=== PATIENT | female | born 1985 | race Asian ===

== ENCOUNTER 2016-06-18 09:45 | Day surgery (SDC) | payer SELFPAY ==
[2016-06-18] VITALS (9 sets, daily range): BP systolic 109–124; BP diastolic 60–91; PULSE 69–104; RESP 13–19; O2SAT 100
[~2016-06-18] VITALS: Ht 162.6 cm; Wt 57.4 kg
[~2016-06-18 09:45] MED LIST: CeFAZolin Inj 2 GM in IV Premix 1 EACH IV SCH; IBUP800T28 PO; Lactated Ringer's 1,000 ML IV SCH
[2016-06-18] MEDS ORDERED: fentaNYL-PF 50 mCg/mL 2 mL Inj ONE (09:46)
[2016-06-18] MEDS ORDERED: Dexamethasone 4 mg/mL Inj ONE (09:46)
[2016-06-18] MEDS ORDERED: EPHEDrine/NS 5 mg/mL 5 mL Syringe ONE (09:46)
[2016-06-18] MEDS ORDERED: Propofol 10,000 mCg/mL 20 mL Inj ONE (09:46)
[2016-06-18] MEDS ORDERED: MetoCLOpramide 5 mg/mL 2 mL Inj ONE (09:46)
[2016-06-18] MEDS ORDERED: Ondansetron 2 mg/mL 2 mL Inj ONE (09:46)
[2016-06-18] MEDS: Lactated Ringer's 1,000 ML IV SCH ×2 (10:49→11:43)
[2016-06-18] MEDS ORDERED: Lactated Ringer's 1,000 ML IV SCH (12:02)
[2016-06-18] MEDS ORDERED: Lactated Ringer's 500 ML IV PRN (12:02)
--- NOTE | 2016-06-18 12:04 | PCM.HPANE ---
Patient Data Surgeon Admitting Provider: Attending Provider:Eleazar Chatman MD Primary Care Physician:Vikash Other Provider:Chencho Dominguez Anesthesia Reason for Visit Bartholin Cyst Ht/WT & BMI Height (Feet): 5 Height (Inches): 4 Weight (Kilograms): 57.4 Body Mass Index 21.00 Allergies Coded Allergies: No Known Allergies (Verified Allergy, Unknown, 06/17/16) Past Anesthesia History Anesthesia History: Denies:: Abnormal Airway, Anesthesia Reactions, Difficult Intubation, Fam Anesthesia Reaction, Fam Malignant Hypertherm, Malignant Hyperthermia Diabetes History Hx Diabetes?: No MRSA MRSA: No Medications Reported Medications Ibuprofen 800 Mg [id number] Mg PO TID PRN For Pain Ref 0 06/06/16 History History of ENT Problems?: No HEENT History: Denies:: Abnormal Airway Cataracts Difficult Intubation Dysphagia Glaucoma Hearing Problem Sinus Problem TMJ Denture Type: None Teeth Condition: Within Normal Limits Hx of Heart Problems?: No Cardiovascular History: Denies:: Heart Murmur Hypertension Hx of Respiratory Problem?: No Respiratory History: Denies:: Oxygen Administration Use of C-PAP Machine Hx Neurologic Problems?: Yes Neurological History: Positive for:: Seizures (HX OF SEIZURE DISORDER (1 SEIZURE)) Hx of GI Problems?: No Hx of Problems?: Yes Genitourinary History: Positive for:: Urinary Tract Infection (recurrent) Female Hx: Denies:: Currently (S/P I&D BARTHOLIN CYST) Problems with Breasts? Skin History: Denies:: History Skin Disorders? Pressure Ulcers Hx Musculoskeletal Problems?: No Hx of Psycho/Social Problems?: No Hx Surgeries?: Yes (I&D BARTHOLIN CYST) Hx Any Other Health Problems?: Yes Other History: Positive for:: Hospitalization ([facility]) Denies:: Cancer Endocrine Disease Thyroid Disease History Blood Transfusions: Denies:: Blood Transfusions Hx Diabetes: No Hx Alcohol Use: NoHx Substance Use: No Smoking Status: Unknown if Ever Smoker Have You Smoked inLast 12 mo: No Stop/Bang S-Snoring: Do You Snore Loudly: No T-Tired: feel tired, fatigued: No O-Obsered: Observed not breath: No P-Blood Pressure: treated: No B- Body Mass Index > 35 kg/m2: No A- Age over 50: No N- Neck Large Circumference: No G- Gender Male: No SANTO Total Score: 0 Risk Assessment Category Category 1A: Patient has history of documented sleep apnea, and HAS NOT received any narcotic, sedative or anesthesia administration during this stay. Category 1B: Patient has history of documented sleep apnea, and HAS received any narcotic , sedative or anesthesia administration during this stay Category 2: Patient has SUSPECTED Obstructive Sleep Apnea, and HAS received any narcotic , sedative or anesthesia administration during this stay. Category 3: Patient has SUSPECTED Obstructive Sleep Apnea and HAS NOT received narcotic, sedative or anesthesia administration during this stay. Category 4: Outpatient in Procedural Areas with known sleep apnea or who screen positive for High Risk via the STOP/BANG questionnaire. Exam Exam Vital Signs Vital Signs Date Time Temp Pulse Resp B/P Pulse Ox O2 Delivery O2 Flow Rate FiO2 06/18/16 10:09 36.0 69 13 109/75 100 Room Air General Appearance: Alert, Oriented X3, Cooperative, No Acute Distress HEENT/AIRWAY: MP 2, Neck Movement (FROM), Mouth Opening (3 FBMO) Lungs: Normal Air Movement Heart: Regular Rate/Rhythm Plan Impression Patient chart reviewed, patient interviewed and anesthestic plan with risks, benefits, and alternatives discussed, and informed consent obtained. NPO per Anesth. Guidelines: Yes ASA Physical Status: ASA2 Mod Systemic Disease Anesthetic Plan: GA Bene/Risks/Altern/Consents: Yes HP Complete Prior to Induction: Yes aBkari Bueno MD June 18, 2016 10:34
[2016-06-18] MEDS ORDERED: MetoCLOpramide 5 mg/mL 2 mL Inj IVPUSH PRN (12:05)
[2016-06-18] MEDS ORDERED: fentaNYL-PF 50 mCg/mL 2 mL Inj IVPUSH PRN (12:05)
[2016-06-18] MEDS ORDERED: Phenylephrine 10,000 mCg/mL Inj IVPUSH PRN (12:05)
[2016-06-18] MEDS ORDERED: EPHEDrine Sulfate 50 mg/mL Inj IVPUSH PRN (12:05)
[2016-06-18] MEDS ORDERED: Atropine 0.4 mg/mL Inj IVPUSH PRN (12:05)
[2016-06-18] MEDS ORDERED: Ondansetron 2 mg/mL 2 mL Inj IVPUSH PRN ×2 (12:05→12:55)
[2016-06-18] MEDS ORDERED: Labetalol 5 mg/mL 4 mL Inj IV PRN (12:05)
[2016-06-18] MEDS ORDERED: HYDROmorphone 1 mg/mL Inj IVPUSH PRN ×2 (12:05→12:55)
[2016-06-18] MEDS ORDERED: Lidocaine 1%-Epi 1:100,000 20 mL Inj NERVEBLOCK ONE (12:16)
--- NOTE | 2016-06-18 12:54 | PCM.DIGYN ---
Surgical Discharge Instruction Dates of Hospitalization Date of Hospital Admission 06/18/2016 Providers Admitting Physician: Primary Care Physician: Vikash Attending Physician: Eleazar Chatman MD Diagnosis at Time of Discharge Diagnosis at time of discharge Left Bartholin's Gland Cyst Post-operative diagnosis Left Bartholin's Gland Cyst Problems: Diet Discharge Diet: No restrictions Activity Discharge Activity-General: Try not to overdue, Be up and about, No lifting > 15 pounds for 2 weeks, No driving while taking narcotic, Other (Nothing per vagina for 6 weeks, no intercourse for 6 weeks) Dressing and Incisional Care Dressing Care: Other (Perform sitze's bathes three times a day for the next 2 weeks.) Hygiene: May shower, DO NOT soak incision under water Follow Up Plan Follow-up appointment: Weeks (2) Call your provider for: Fever, Chills, Wound redness, Increasing pain Eleazar Chatman MD June 18, 2016 12:54
[2016-06-18] MEDS ORDERED: diphenhydrAMINE 25 mg Capsule PO PRN (12:55)
[2016-06-18] MEDS ORDERED: oxyCODONE-Acetamin 5-325 mg Tablet PO PRN (12:55)
--- NOTE | 2016-06-18 13:29 | OP ---
[address] [address] OPERATIVE REPORT PATIENT: MERY REY : 1985 MR#: [id number] ADMIT: 06/18/2016 JOB ID: [id number] DATE OF SURGERY: 06/18/2016 PREOPERATIVE DIAGNOSIS(ES): Recurrent Bartholin cyst. POSTOPERATIVE DIAGNOSIS(ES): Recurrent Bartholin cyst. PROCEDURE PERFORMED: Marsupialization of Bartholin cyst. SURGEON: Eleazar Chatman MD. ANESTHESIA: General. ESTIMATED BLOOD LOSS: Zero mL. COMPLICATIONS: None. PATHOLOGY SENT: None. FINDINGS AT TIME OF SURGERY: There was a 4-5 cm, left-sided Bartholin gland cyst. The labia and surrounding epithelium were normal in appearance. There were no signs of infection. DESCRIPTION OF PROCEDURE: The patient was taken to the operating room, where her general anesthesia was obtained without difficulty. [facility] and prepared and draped in a normal sterile fashion. The labia were sutured back with 2-0 Vicryl suture to help with exposure. The Bartholin cyst was identified on the left and palpated. A vertical skin incision was made over the cyst. This was carried down to the cyst capsule, which was then opened in a vertical fashion. The cyst was drained, and the cyst bed irrigated with copious amounts of normal saline. The cyst capsule was then sutured to the surrounding epithelium with interrupted sutures of 2-0 Vicryl. Good hemostasis was ensured. The labial stay sutures were removed. Good hemostasis was ensured. All lap, instrument and needle counts were correct x2 at the end of the procedure. The patient was taken to the recovery room awake and in good condition.
--- NOTE | 2016-06-18 13:58 | PCM.ANEP1 ---
Post Anesthesia Phase 1 PACU Phase 1 Assessment Vital Signs Vital Signs Date Time Temp Pulse Resp B/P Pulse Ox O2 Delivery O2 Flow Rate FiO2 06/18/16 13:20 85 17 122/74 100 Room Air 06/18/16 13:15 36.6 81 18 119/91 100 Room Air 06/18/16 13:05 87 19 124/79 100 Simple Mask 8 06/18/16 13:00 92 19 111/64 100 Simple Mask 8 06/18/16 12:55 95 18 122/69 100 Simple Mask 8 06/18/16 12:50 103 15 115/69 100 Simple Mask 8 06/18/16 12:48 36.1 104 15 114/60 100 Simple Mask 8 06/18/16 10:09 36.0 69 13 109/75 100 Room Air Anesthetic Administered: GA Level of Alertness: Awake, talking RAMÍREZ's with Equal Strength: Yes Pain: No Nausea or Vomiting: No Cardiovascular Function and Hy: Yes Oxygen Delivery: Simple Mask Lungs: Normal Air Movement Dermatome Level: Full Sensation Complications: No Follow up Care: No Bakari Bueno MD June 18, 2016 13:58
== END 2016-06-18 23:59 | disposition home or self-care (01) ==
LOC: SAS 09:45
PROVIDERS: ATTEND Obstetrics & Gynecology
DX: N75.0 Cyst of Bartholin's gland (principal); G40.909 Epilepsy, unspecified, not intractable, without status epilepticus; Z87.440 Personal history of urinary (tract) infections
CPT/HCPCS: 56440; J0690; J1100; J1885; J2405; J2765; J3010; J7120